=== PATIENT | male | born 1970 | race Two or more races ===

== ENCOUNTER 2017-07-22 21:21 | Emergency (ER) | payer MEDICAID ==
[~2017-07-22] VITALS: Ht 175.3 cm; Wt 86.2 kg
--- NOTE | 2017-07-22 22:09 | NUR ---
Patient discharged to home in stable conditon. Written and verbal after care instructions given. Patient verbalizes understanding of instructions. Walked out of ER with steady gait. no distress noted
== END 2017-07-22 22:10 | disposition home or self-care (01) ==
LOC: ER 21:21
DX: B35.6 Tinea cruris (principal)
CPT/HCPCS: A4663

== ENCOUNTER 2018-01-14 09:48 | Emergency (ER) | payer MEDICAID ==
[~2018-01-14] VITALS: Ht 175.3 cm; Wt 83.9 kg
--- NOTE | 2018-01-14 10:12 | NUR ---
mse completed, crutches dispensed, knee immobilizor placed to rt knee. pt demonstrated proper crutch use, aci/rx given. pt ambulated w/o diff with crutches, took all belongings.
[2018-01-14 10:25] VITALS: BP 115/77
== END 2018-01-14 10:26 | disposition home or self-care (01) ==
LOC: ER 09:51
DX: M25.562 Pain in left knee (principal); Z88.8 Allergy status to other drugs, medicaments and biological substances
CPT/HCPCS: A4663

== ENCOUNTER 2018-01-25 21:00 | Emergency (ER) | payer MEDICAID ==
[~2018-01-25] VITALS: Ht 175.3 cm; Wt 83.9 kg
--- NOTE | 2018-01-25 21:00 | NUR ---
Patient came into ER with use walker c/o left ankle pain and swelling since 299 today. Patient denies trauma to area
--- NOTE | 2018-01-25 21:35 | NUR ---
Dr Alcazar into eval patient
[2018-01-25] MEDS ORDERED: HYDROCODONE/APAP 5-325MG TABLET PO ONE (21:45)
[2018-01-25] MEDS ORDERED: IV NS 1000 ML 1,000 ML IV ONE (21:45)
[2018-01-25] MEDS ORDERED: HYDROCODONE/APAP 5-325MG TABLET ONE (21:49)
[2018-01-25 22:14] LABS: BASOPHILS % (AUTO) 0.3 % (0.0-2.0); EOSINOPHILS % (AUTO) 0.5 % (0.0-7.0); HEMATOCRIT 41.1 % (36.7-47.1); HEMOGLOBIN 14.5 g/dL (12.5-16.3); LYMPHOCYTES # (AUTO) 1.7 K/uL (20.0-40.0); LYMPHOCYTES % (AUTO) 22.3 % (20.5-51.5); MEAN CORPUSCULAR HGB CONC 35 g/dL (32.5-36.3); MONOCYTES # (AUTO) 0.8 K/uL (2.0-10.0); MONOCYTES % (AUTO) 10.2 % (0.0-11.0); NEUTROPHILS # (AUTO) 5.2 K/uL (1.8-8.9); NEUTROPHILS % (AUTO) 66.7 % (38.5-71.5); PLATELET COUNT (AUTO) 222 K/uL (152-348); RED BLOOD CELL COUNT(AUTO) 4.83 MIL/uL (4.06-5.63); WHITE BLOOD COUNT (AUTO) 7.8 K/uL (3.6-10.2)
[2018-01-25 22:18] LABS: CREATININE 1.1 mg/dL (0.6-1.3); POTASSIUM 4.2 mmol/L (3.5-5.1)
[2018-01-25 22:25] LABS: BILIRUBIN,TOTAL 0.5 mg/dL (0.2-1.0); TOTAL PROTEIN, SERUM 7.5 g/dL (6.4-8.2)
[2018-01-25] MEDS ORDERED: IOHEXOL 300MG/ML 100 ML INFUS..BTL ONE (23:30)
[2018-01-25] MEDS ORDERED: SWABABLE VALVE TRANSFER SET EA MC ONE (23:44)
--- NOTE | 2018-01-25 23:54 | NUR ---
Patient out of unuit for ct scan
--- NOTE | 2018-01-26 00:20 | NUR ---
Patient back from ct scan with no distress noted
--- NOTE | 2018-01-26 01:18 | NUR ---
IV removed. Catheter intact and site benign. Pressure and 4x4 gauze applied to site. No bleeding noted.
[2018-01-26 01:25] VITALS: BP 120/75
--- NOTE | 2018-01-26 01:25 | NUR ---
Patient discharged to home in stable conditon. Written and verbal after care instructions given. Patient verbalizes understanding of instructions. Walked out of ER with use of walker. No distress noted
== END 2018-01-26 01:26 | disposition home or self-care (01) ==
LOC: ER 21:02
DX: S93.402A Sprain of unspecified ligament of left ankle, initial encounter (principal); M25.472 Effusion, left ankle; Z88.8 Allergy status to other drugs, medicaments and biological substances; X58.XXXA Exposure to other specified factors, initial encounter; Y93.89 Activity, other specified; Y92.89 Other specified places as the place of occurrence of the external cause; Y99.8 Other external cause status
CPT/HCPCS: 36415; 73600; 73620; 85025; 85651; 87040; A4663; J7030; Q9967